=== PATIENT | male | born 1960 | race Caucasian/White ===

== ENCOUNTER 2018-06-27 10:13 | Emergency (ER) | payer BC ==
[~2018-06-27] VITALS: Ht 177.8 cm; Wt 142.3 kg
[~2018-06-27 10:13] MED LIST: ADLT ASA LOW81 MG PO; ALLOPURINOL300 MG PO; INDOMETHACIN25 MG PO; LIPITOR40 M1 PO; LISINOPRIL5 MG PO; ULTRAM50 M1 PO
[2018-06-27] MEDS ORDERED: ZYLOPRIM300 MG PO (11:51)
[2018-06-27] MEDS ORDERED: INDOCIN25 MG PO (11:52)
[2018-06-27] MEDS ORDERED: LISINOPRIL10 M1 PO (11:53)
[2018-06-27 14:54] LABS: HEMATOCRIT 40.1 % (39.0-50.0); IMMATURE GRANULOCYTES 0.6 % (0.0-5.0); MEAN CELL VOLUME 92.6 fL CALC (80.0-100.0); MEAN CORPUSCULAR HGB CONC 32.4 g/L CALC (32.0-36.0); NEUT# 9.81 thou/uL (1.82-7.42); RED BLOOD COUNT 4.33 mill/uL (4.70-6.10); RED CELL DISTRI WIDTH 13.3 % (11.5-15.5)
[2018-06-27 15:07] LABS: ANION GAP 10 (6-22 (CALC)); BUN 21 mg/dL (9-20); BUN/CREATININE RATIO 18 (12-20 (CALC)); CARBON DIOXIDE 27 mmol/l (22-30); CHLORIDE 107 mmol/l (95-108); CREATININE 1.2 mg/dL (0.7-1.3); GFR > 60 ML/MIN (>=60 (CALC)); GFR FOR AFR.AMER. > 60 ML/MIN (>=60 (CALC)); POTASSIUM 4.1 mmol/l (3.5-5.1); SODIUM 140 mmol/l (137-146)
[2018-06-27 17:45] VITALS: BP 139/74
== END 2018-06-27 17:45 | DRG 552 ==
LOC: ED 10:13
PROVIDERS: Family Medicine
DX: S32.039A Unspecified fracture of third lumbar vertebra, initial encounter for closed fracture (principal); W11.XXXA Fall on and from ladder, initial encounter; Y93.H2 Activity, gardening and landscaping; Y92.007 Garden or yard of unspecified non-institutional (private) residence as the place of occurrence of the external cause